=== PATIENT | female | born 1955 | race Hispanic/Latino ===

== ENCOUNTER → 2022-11-02 | Outpatient (CLI) | payer MEDICARE | END | disposition home or self-care (01) | LOC: SHCH 08:33 | PROVIDERS: ATTEND Student in an Organized Health Care Education/Training Program | DX: Z01.810 Encounter for preprocedural cardiovascular examination (principal); I11.9 Hypertensive heart disease without heart failure; E11.8 Type 2 diabetes mellitus with unspecified complications; R94.31 Abnormal electrocardiogram [ECG] [EKG]; E66.9 Obesity, unspecified; Z79.84 Long term (current) use of oral hypoglycemic drugs; Z79.899 Other long term (current) drug therapy | CPT/HCPCS: 93306 ==

== ENCOUNTER → 2023-02-27 | Outpatient (CLI) | payer MEDICARE | END | disposition home or self-care (01) | LOC: RAH 12:40 | PROVIDERS: ATTEND Physician Assistant | DX: M25.561 Pain in right knee (principal) | CPT/HCPCS: 73562 ==

== ENCOUNTER → 2024-08-27 | Outpatient (CLI) | payer MEDICARE ==
[~2024-08-27] MED LIST: IOHEXOL 350 MG/ML 100ML INFUS..BTL IV ONE; metoPROLOL tartRATE 1 MG/ML 5ML VIAL IV ONE
--- NOTE | 2024-08-27 11:58 | HMCIMG ---
CT CARDIAC ANGIO W/CONT. CCTA HISTORY: Chest pain COMPARISON: None TECHNIQUE: Multiple sequential axial images of the chest were obtained along with the CT angiogram of the chest study. Patient was given 100 cc of Omnipaque through intravenous route. FINDINGS: There is no evidence of pulmonary nodule or parenchymal disease. No pleural effusion or pericardial effusion is seen. There is no evidence of pneumothorax. There are normal size mediastinal and hilar lymph nodes. The heart is not enlarged. Degenerative changes of the thoracolumbar spine are present. IMPRESSION: 1. No evidence of pulmonary nodule or effusion is seen. Please see CT angiogram report of coronary arteries.
== END | disposition home or self-care (01) ==
LOC: RAH 08:51
PROVIDERS: ATTEND Student in an Organized Health Care Education/Training Program
DX: R07.9 Chest pain, unspecified (principal); M47.815 Spondylosis without myelopathy or radiculopathy, thoracolumbar region
CPT/HCPCS: 75574; J3490; Q9967

== ENCOUNTER 2024-11-02 05:33 | Day surgery (SDC) | payer MEDICARE ==
[2024-10-29 10:03] VITALS: BP 141/75; PULSE 66; RESP 16; TEMP 97.3
[2024-10-29 10:05] LABS: BASOPHILS # (AUTO) 0.03 K/uL (0.00-0.20); BASOPHILS % (AUTO) 0.4 % (0.0-5.0); EOSINOPHILS # (AUTO) 0.12 K/uL (0.00-0.70); EOSINOPHILS % (AUTO) 1.6 % (0.0-8.0); IMMATURE GRANULOCYTE ABSOLUTE 0.04 K/uL (0-1); LYMPHOCYTES # (AUTO) 1.6 K/uL (1.0-4.8); LYMPHOCYTES % (AUTO) 20.6 % (21.0-51.0); MEAN CORPUSCULAR HEMOGLOBIN 28.3 pg (27.0-33.0); MEAN CORPUSCULAR HGB CONC 31.7 g/dL (32.0-36.0); MEAN CORPUSCULAR VOLUME 89.3 fL (79-99); MONOCYTES # (AUTO) 0.3 K/uL (0.1-1.0); MONOCYTES % (AUTO) 4.2 % (3.0-13.0); NEUTROPHILS # (AUTO) 5.6 K/uL (1.8-7.7); NEUTROPHILS % (AUTO) 72.7 % (40.0-77.0); PLATELET COUNT (AUTO) 222 K/uL (130-400); RED BLOOD CELL COUNT(AUTO) 5.15 MIL/uL (4.00-5.50); RED CELL DISTRIBUTION WIDTH 13.9 % (11.0-15.5); WHITE BLOOD COUNT (AUTO) 7.7 K/uL (4.8-10.8)
[2024-10-29 10:13] LABS: APPEARANCE,URINE CLOUDY (CLEAR); BILIRUBIN,URINE NEGATIVE (NEGATIVE); COLOR,URINE YELLOW (YELLOW); GLUCOSE, URINE (UA) NEGATIVE (NEGATIVE); KETONES,URINE NEGATIVE (NEGATIVE); LEUKOCYTE ESTERASE ,URINE 500 Leu/uL (NEGATIVE); NITRATE,URINE NEGATIVE (NEGATIVE); OCCULT BLOOD,URINE NEGATIVE (NEGATIVE); PROTEIN,URINE 10 mg/dL (NEGATIVE); UROBILINOGEN,URINE 0.2 mg/dL (0.2-1.0)
[2024-10-29 10:13] LABS: CREATININE 0.7 mg/dL (0.5-1.0)
[2024-10-29 10:16] LABS: INR 1.02 (0.85-1.15); PROTHROMBIN TIME 11.4 SEC (9.6-11.6)
[2024-10-29 10:17] LABS: PARTIAL THROMBOPLASTIN TIME 28.4 SEC (26.3-35.5)
[2024-10-29 10:24] LABS: ADD UA MICROSCOPIC YES
[2024-10-29 10:26] LABS: BACTERIA,URINE FEW /HPF (None Seen); CALCIUM OXALATE CRYSTALS,UR RARE /LPF (None Seen); MUCUS,URINE RARE LPF (None Seen); SQUAMOUS EPITHELIAL CELL,UR MANY /HPF (0-2)
[2024-10-29 10:34] LABS: B-TYPE NATRIURETIC PEPTIDE 47 pg/mL (0-100)
--- NOTE | 2024-10-29 11:46 | HMCIMG ---
CHEST 1VW HISTORY: Preop COMPARISON: None FINDINGS: A frontal projection of the chest was obtained. No acute pulmonary infiltrates is seen. The heart is borderline enlarged. Prominent interstitial markings are seen. R degenerative changes are seen. Aortic calcifications are seen. IMPRESSION: 1. No acute pulmonary infiltrate is seen.
--- NOTE | 2024-10-29 13:09 | EKG ---
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
[2024-11-02] VITALS (11 sets, daily range): BP systolic 119–192; BP diastolic 57–90; PULSE 67–78; RESP 12–24; TEMP 97.2–97.4
[~2024-11-02] VITALS: Ht 157.5 cm; Wt 111.7 kg
[~2024-11-02 05:33] MED LIST changes: +ATOR40TA69 PO; -IOHEXOL 350 MG/ML 100ML INFUS..BTL IV ONE; +LOSA1TAB42 PO; +METF-444 PO; +TIRZ10PE SQ; -metoPROLOL tartRATE 1 MG/ML 5ML VIAL IV ONE
[2024-11-02] MEDS: 0.9%NACL 1000ML 1,000 ML IV SCH (06:54)
[2024-11-02] MEDS ORDERED: VERAPAMIL HCL 2.5 MG/ML VIAL ONE (08:39)
[2024-11-02] MEDS ORDERED: IOHEXOL 350 MG/ML 100ML INFUS..BTL IV ONE ×2 (08:39→10:12)
[2024-11-02] MEDS ORDERED: HEParin-NS 1,000 UNIT/500 ML 1,000 ML IV ONE (08:39)
[2024-11-02] MEDS ORDERED: NITROGLYCERIN 50MG VIAL ONE (08:39)
[2024-11-02] MEDS ORDERED: LIDOCAINE HCL 400MG/20ML VIAL ONE (08:39)
[2024-11-02] MEDS ORDERED: HEParin 10,000 UNIT/10ML (1,000 UNIT/ML) VIAL ONE ×2 (08:39→09:46)
[2024-11-02] MEDS ORDERED: FENTanyl CITRate PF 50 MCG/1 ML 2ML VIAL ONE (08:44)
[2024-11-02] MEDS ORDERED: MIDAZOLAM HCL 1 MG/ML 2ML VIAL ONE ×2 (08:44→09:43)
[2024-11-02] MEDS ORDERED: hydrALAZine 20MG/ML VIAL ONE (09:43)
[2024-11-02] MEDS ORDERED: cloPIDOgrel 300MG TAB ONE (09:46)
[2024-11-02] MEDS ORDERED: EPTIFIBATIDE 2 MG/ML 10 ML VIAL IVP ONE (09:47)
[2024-11-02] MEDS ORDERED: ASPIRIN 325MG EC TAB PO ONE (09:47)
[2024-11-02] MEDS ORDERED: EPTIFIBATIDE 75MG/100ML BOTTLE 100 ML IV ONE (09:47)
--- NOTE | 2024-11-02 10:50 | PRN ---
PROCEDURE REPORT DATE OF PROCEDURE: Nov 02, 2024 WEIGHER PRODUCTION: [ Yesi watkins MD] PROCEDURE PERFORMED: Conscious sedation Ultrasound guided right radial artery access Selective left coronary artery angiogram Selective right coronary artery angiogram Left heart catheterization IVUS of the LAD and left main Status post successful IVUS guided PTCA/PCI of the proximal LAD (3.5 x 26 mm amber Red Willow drug-eluting stent) TR band 13 osmel over right radial artery INDICATION: Abnormal CCTA DESCRIPTION OF PROCEDURE: After informed consent was obtained, the patient was prepped and draped in the usual sterile fashion. A 6 German arterial sheath was inserted in the right radial artery using ultrasound guidance with first pass wall puncture. The arterial sheath was aspirated and flushed. A 6 German JL 3.5 was then advanced to the ascending aorta over an exchange length J-tip guidewire, was aspirated and flushed, and was used for selective coronary angiograms in multiple obliquities. A JR-4 was advanced in a similar fashion to the ascending aorta over the J-tipped guidewire and was used for selective right coronary angiograms in multiple oblique views with findings as outlined below. The JR-4 catheter advanced into the LV and pressures were obtained with a pull-back across the aortic valve. Following review of all the angiographic images decision was made to intervene on patient's critical proximal LAD stenosis. We exchanged the diagnostic catheters for a six German XB three guide catheter which was used to select engage the left main coronary artery. [place] [address] units of IV heparin, 300 mg of p.o. Plavix, and 324 mg of aspirin along with double bolus of Integrilin and infusion during the procedure and following therapeutic ACT we advanced a Prowater down to the distal LAD under fluoroscopic guidance. We then pre-dilated the proximal LAD with a 3 x 20 mm compliant balloon to nominal pressures. We then proceeded with IVUS imaging of the LAD and left main to further delineate lesion morphology and characteristics. We then attempted to advance a 3.5 x 26 mm stent but we were met with significant resistance and loss of guide catheter support. At this time we then advanced a microcatheter over the wire which was used to exchange for a more supportive wiggle wire. We then also advanced a six German GuideLiner over the wire for additional support. We then deployed the 3.5 x 26 mm amber Red Willow drug-eluting stent within the proximal LAD to nominal pressures. We post dilated the stent using a 3.5 x 20 mm noncompliant balloon to 14 and OSMEL respectively. Final angiographic imaging revealed samaritan of NANCI three flow with no dissections or perforations. All wires and catheters removed from the body and A TR band was placed over right radial artery. 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 Gives rise to LCx, RI, and LAD. LEFT ANTERIOR DESCENDING: Large vessel giving rise to two Diagonal branches. There is 80% proximal LAD stenosis. Diagonals have mild diffuse disease. RAMUS INTERMEDIUS: Large with 40-50% proximal stenosis LEFT CIRCUMFLEX: Large, codominant and gives rise to two OM branches. 20-30% ostial stenosis followed by luminal irregularities. OM2 are widely patent. RIGHT CORONARY ARTERY: Large, dominant vessel giving rise to PDA and PL branches. 20-30% mid stenosis. PDA and PLB are widely patent HEMOSTASIS: TR band 12 osmel over right radial artery INTERVENTIONS: Status post successful IVUS guided PTCA/PCI of the proximal LAD (3.5 x 26 mm amber Red Willow drug-eluting stent) COMPLICATIONS: None FINDINGS: Normal coronary anatomy and severe obstructive CAD. Status post successful revascularization to the proximal LAD x1 ESTIMATED BLOOD LOSS: 5 cc RECOMMENDATIONS/INSTRUCTIONS: Aggressive risk factor modification. Patient require a total of six months of adapt (aspirin 81 mg q.day/Plavix 75 mg daily) in addition to high-intensity statin therapy and beta-antwan Follow up with Dr. Al watkins 1-2 weeks post discharge CONTRAST DELIVERED TO PATIENT (mL): 220cc YESI Tolentino MD, MD Nov 02, 2024 10:50
[2024-11-02] MEDS ORDERED: GLUCAGON 1MG KIT 1 MG ML IM PRN (11:00)
[2024-11-02] MEDS ORDERED: 0.9%NACL 1000ML 1,000 ML IV SCH (11:00)
[2024-11-02] MEDS ORDERED: DEXTROSE 50%-WATER 50 ML DISP.SYRIN IV PRN (11:00)
--- NOTE | 2024-11-02 14:00 | NUR ---
VASC BAND VASC BAND REMOVED FOLLOWED BY [facility]A PREP. APPLIED 2X2 GAUZE AND SECURED WITH TEGADERM. NO ACTIVE BLEEDING OR SWELLING NOTED TO THE AREA.
[2024-11-03] MEDS ORDERED: ASPIRIN 81MG CHEW TAB PO SCH (09:00)
[2024-11-03] MEDS ORDERED: cloPIDOgrel 75MG TAB PO SCH (09:00)
== END 2024-11-02 14:50 | disposition home or self-care (01) ==
LOC: DAH 05:33
PROVIDERS: ATTEND Student in an Organized Health Care Education/Training Program
DX: R94.39 Abnormal result of other cardiovascular function study (principal); I25.118 Atherosclerotic heart disease of native coronary artery with other forms of angina pectoris; I25.84 Coronary atherosclerosis due to calcified coronary lesion; E78.2 Mixed hyperlipidemia; E11.8 Type 2 diabetes mellitus with unspecified complications; I10 Essential (primary) hypertension; R07.89 Other chest pain; R06.02 Shortness of breath; E66.01 Morbid (severe) obesity due to excess calories; I87.2 Venous insufficiency (chronic) (peripheral); Z98.42 Cataract extraction status, left eye; Z82.49 Family history of ischemic heart disease and other diseases of the circulatory system; Z79.84 Long term (current) use of oral hypoglycemic drugs; Z68.41 Body mass index [BMI] 40.0-44.9, adult; Z79.899 Other long term (current) drug therapy; Z79.82 Long term (current) use of aspirin
CPT/HCPCS: 80048; 83880; 85025; 85610; 85730; 87086; 81001; 36415; 71045; 93005; 92978; 92979; 93458; 82948 ×2; A4223 ×6; A4335 ×2; A4221 ×2; A4606 ×2; C1769 ×4; C1725 ×2; C1874; C1887 ×3; C1894; A4649; C1753; Q9965 ×3; J3010; J3490 ×3; J7030; J0360; J1644 ×3; J2250 ×2; J1327 ×2; Q9967 ×2; A4215 ×4; A4222 ×2; A4663 ×2; A4216 ×2; C9600; 92920; 99156; 99157